=== PATIENT | male | born 1965 | race Caucasian/White ===

== ENCOUNTER → 2018-08-06 13:01 | Outpatient (CLI) | payer OTHER | END | disposition home or self-care (01) | LOC: D.RT 13:00 | DX: Z02.71 Encounter for disability determination (principal) ==

== ENCOUNTER 2019-09-04 20:54 | Emergency (ER) | payer OTHER ==
[~2019-09-04] VITALS: Ht 175.3 cm; Wt 76.4 kg
[2019-09-04 21:04] VITALS: Ht 175.3 cm; Wt 76.4 kg
[2019-09-04] MEDS ORDERED: LITHIUM CARBON300 MG (21:05)
[2019-09-04] MEDS ORDERED: XANAX0.5 MG (21:05)
[2019-09-04] MEDS ORDERED: IPRAT-ALBUT 0.5-3 ML (21:06)
[2019-09-04] MEDS ORDERED: ADVAIR 250-501 EAC1 (21:06)
[2019-09-04] MEDS ORDERED: STERAPRED DS 1010 MG (21:06)
[2019-09-04] MEDS ORDERED: EYE DROPS (21:06)
[2019-09-04 21:30] LABS: BASOPHILS 0.1 % (0-2); EOSINOPHILS 1.4 % (0-7); HEMATOCRIT 47.8 % (42.0-54.0); HEMOGLOBIN 15.3 g/dL (13.5-17.5); IMMATURE GRANULOCYTES 0.3 % (0-5); LYMPHOCYTES 10.3 % (15-50); MCH 31.6 pg (26.0-34.0); MCV 98.8 fL (80.0-100.0); MEAN PLATELET VOLUME 9.2 fL (7.4-10.4); MONOCYTES 6.5 % (2-11); NEUTROPHILS 81.4 % (40-80); PLATELET COUNT 252 10x3/uL (130-400); RBC 4.84 10x6/uL (4.20-6.10); RDW 12.9 % (11.5-14.5); WBC 14.5 10x3/uL (4.8-10.8)
[2019-09-04 21:40] LABS: PROTIME 13.1 SECONDS (11.6-15.0)
[2019-09-04 21:41] LABS: APTT 28.5 SECONDS (22.8-39.4)
[2019-09-04 22:00] LABS: CALC OSMOLALITY 281 mosm/kg (275-300); CALCIUM 8.7 mg/dL (8.5-10.1); CARBON DIOXIDE 39.7 mmol/L (21.0-32.0); CHLORIDE - SERUM 104 mmol/L (98-107); CREATININE - SERUM 0.7 mg/dL (0.6-1.3); GLUCOSE 97 mg/dL (74-106); POTASSIUM - SERUM 4.7 mmol/L (3.5-5.1); SODIUM 141 mmol/L (136-145); UREA NITROGEN 16 mg/dL (7-18); eGFR NON AFRICAN AMERICAN > 90 mL/min (90-120)
[2019-09-04 22:18] LABS: ALBUMIN 2.9 g/dL (3.4-5.0); ALKALINE PHOSPHATASE 102 U/L (30-120); ALT (SGPT) 27 U/L (10-68); BILIRUBIN - TOTAL 0.22 mg/dL (0.2-1.3); CKMB 0.6 U/L (0.0-3.6); CREATINE KINASE 25 UL (21-232); PRO BNP 41 pg/mL (0-125); PROTEIN - SERUM 6.3 g/dL (6.4-8.2)
[2019-09-04 22:19] LABS: TROPONIN-I < 0.017 ng/mL (0.000-0.060)
[2019-09-04] MEDS ORDERED: ULTRAM50 MG PO (23:32)
[2019-09-05 00:07] VITALS: BP 122/71
== END 2019-09-05 00:09 | disposition home or self-care (01) ==
LOC: D.ER 20:54
PROVIDERS: Family Medicine
DX: J44.1 Chronic obstructive pulmonary disease with (acute) exacerbation (principal); G44.209 Tension-type headache, unspecified, not intractable; Z72.0 Tobacco use; F31.9 Bipolar disorder, unspecified